=== PATIENT | female | born 1995 ===

== ENCOUNTER → 2017-05-15 | Emergency (ER) | payer OTHER ==
[~2017-05-15] VITALS: Ht 162.6 cm; Wt 70.3 kg
== END | disposition home or self-care (01) ==
LOC: ER 06:53
DX: K52.9 Noninfective gastroenteritis and colitis, unspecified (principal); E86.0 Dehydration

== ENCOUNTER 2017-08-06 10:31 | Emergency (ER) | payer OTHER ==
[~2017-08-06] VITALS: Ht 162.6 cm; Wt 65.3 kg
== END 2017-08-06 17:02 | disposition home or self-care (01) ==
LOC: ER 10:31
DX: K29.70 Gastritis, unspecified, without bleeding (principal); K21.9 Gastro-esophageal reflux disease without esophagitis